=== PATIENT | male | born 1960 | race Caucasian/White ===

== ENCOUNTER 2020-07-27 15:54 | Outpatient (RCR) | payer OTHER, SELFPAY ==
[2020-07-27] MEDS: COVID-19 VACC, MRNA(PFIZER)/PF 30 MCG/0.3 ML SYRINGE IM (14:41)
[2020-08-17] MEDS: COVID-19 VACC, MRNA(PFIZER)/PF 30 MCG/0.3 ML SYRINGE IM (14:34)
== END 2020-10-19 23:59 ==
LOC: IMMUN 15:54
PROVIDERS: PCP Family Medicine; Referring Provider Family Medicine; Visit Provider Family Medicine
DX: Z23 Encounter for immunization (principal)
CPT/HCPCS: 0001A; 0002A; 91300

== ENCOUNTER 2021-04-04 12:40 | Emergency (ER) | payer OTHER, SELFPAY ==
[2021-04-04 12:40] VITALS: BP 174/96; PULSE 92; RESP 16; TEMP 36.2; O2SAT 97; BMI 31.5
--- NOTE | 2021-04-04 13:09 | RAD_ITS ---
INDICATION: injury EXAMINATION/TECHNIQUE: X-RAY - LEFT XR Foot Min 3 Views 3 VIEWS COMPARISON: None. FINDINGS: SOFT TISSUES: No soft tissue swelling or gas. No radiopaque foreign body. BONES/JOINTS: No acute fracture or subluxation.. Normal alignment. Preservation of the joint space.. No sclerotic or destructive changes observed. RAD/Foot min 3 Views IMPRESSION: Negative. Electronically Signed: Gurpreet Waite MD at 13:29 EST Tel , Service support ,
--- NOTE | 2021-04-04 14:06 | ED.VIS.LOWEX ---
HPI History of Present Illness Chief Complaint: Lower Extremity Injury Informant: patient Occured/Mechanism Mechanism/Context: Yes direct blow and Yes work related Onset/Context/Timing Onset: Today Context: Sudden Onset Timing: Continuous Quality of Pain: Aching Location: Left great toe Current Severity: Moderate Maximum Severity: Moderate Worsened by: Walking, palpation, bending Relieved by: Remaining still Associated Symptoms Associated Symptoms: Negative for Parasthesia, Weakness and Loss of Funtion Narrative Narrative: Patient at work accidentally dropped a bottle haile onto his left foot it hit his great toe. He has no pain or injury elsewhere. No bleeding. Pain is mostly at the area of the proximal phalanx of the great toe. PFSH PFSH Medical History no medical history no medical history Home Medications NK 04/04/21 [History Last Taken Unknown] Allergy/AdvReac Type Severity Reaction Status Date / Time No Known Allergies Allergy Verified 04/04/21 12:43 Social History Smoking Status: Never smoker ROS ROS ED Constitutional Constitutional ED: Denies chills or fever(s) Musculoskeletal Musculoskeletal: Reports extremity pain; Denies neck pain Integumentary Denies Abrasions, rash or wounds Neurologic Neurologic: Denies paresthesias or weakness EXAM Physical Exam Const Vital Signs: 04/04/21 12:40 Temperature 97.1 F L Temperature Source Temporal Pulse Rate 92 Respiratory Rate 16 Blood Pressure 174/96 H Blood Pressure Mean 122 Pulse Ox 97 Oxygen Delivery Method Room Air Positive well nourished and well developed General Appearance ED: well developed and NAD Neck full ROM and supple Back/Spine normal ROM and normal to inspection Extremity Extremity Narrative: Tenderness left great toe proximal phalanx and IPJ, limited range of motion due more to swelling than pain, some bruising evident along with some mild subungual hematoma at the proximal aspect, but there is no tenderness at the distal phalanx or the nail even with pressure being applied. No deformities. The rest of the foot is atraumatic and nontender. No breaks in the skin. Neuro oriented x3, no focal motor deficits and no sensory deficits noted Sensorium / Orientation: alert Psych mental status grossly normal and thought process normal Skin no wounds Rashes: no rashes MDM MDM MDM Narrative Medical decision making narrative: X-rays are unremarkable see below. Patient was given a postop shoe a dose of ibuprofen, I do not think he needs trephination of the nail which we discussed and he is in agreement he is not having a lot of pain there at the nail, as I do not think this will greatly help him. Supportive care advised, he is okay going back to work tomorrow without restrictions, he states he is on vacation for the next week so that will help him rest it. Advised use a postop shoe only as needed. Radiography Diagnostic Testing: Clinical Impression(s) from Imaging Studies Foot X-Ray 04/04/21 13:09 IMPRESSION: Negative. Electronically Signed: Gurpreet Waite MD at 13:29 EST Tel , Service support , Discharge Plan Triage Chief Complaint: Lower Extremity Injury ED Provider: Brandan Porras Dx/Rx/DC Orders Clinical Impression: Contusion of great toe of left foot Instructions: ED Foot Contusion Prescriptions: No Action NK RF: 0 Primary Care Provider: Jamie Mcintosh Referrals: [facility], [place] [GROUP OF PHYSICIANS] - As Needed Jamie Mcintosh MD [Primary Care Provider] - Activity Restrictions/Additional Instructions: Use postoperative shoe if needed/helpful. Ice to affected area when resting for the next 2 days. Tylenol, ibuprofen as needed for pain. Disposition Disposition: Home, Self Care
[2021-04-04 14:24] VITALS: BP 155/67; PULSE 76; RESP 18; O2SAT 97
== END 2021-04-04 14:26 | disposition home or self-care (01) ==
PROVIDERS: Emergency Provider Emergency Medicine; PCP Family Medicine
DX: S90.112A Contusion of left great toe without damage to nail, initial encounter (principal); W22.8XXA Striking against or struck by other objects, initial encounter; Y93.9 Activity, unspecified; Y92.9 Unspecified place or not applicable
CPT/HCPCS: 73630; 99284